=== PATIENT | female | born 1975 | race Two or more races ===

== ENCOUNTER 2025-03-24 05:58 | Emergency (ER) | payer OTHER, SELFPAY ==
[2025-03-24 05:59] VITALS: BMI 28.8
[2025-03-24 06:41] VITALS: BP 147/94; PULSE 79; RESP 18; TEMP 37.1; O2SAT 97
--- NOTE | 2025-03-24 06:52 | PD.EDRME ---
Rapid Medical Screening Exam RME Arrival date/time: 03/24/25 05:58 49-year-old female presents to the emergency room today for complaint of right flank pain Chief Complaint: Abdominal Pain Time Seen by Provider: 03/24/25 06:14 Vital signs: Vital Signs Temperature 98.8 F 03/24/25 06:41 Pulse Rate 79 03/24/25 06:41 Respiratory Rate 18 03/24/25 06:41 Blood Pressure 147/94 H 03/24/25 06:41 Pulse Oximetry (%) 97 03/24/25 06:41 Oxygen Delivery Method Room Air 03/24/25 06:41
[2025-03-24] MEDS: KETOROLAC INJ 30 MG/ML VIAL IM (07:04)
[2025-03-24 07:24] LABS: Collection Type, Urine Clean Catch
[2025-03-24 07:36] LABS: Bilirubin,Urine Negative (Negative); Blood,Urine Negative (Negative); Clarity,Urine Clear (Clear/Hazy); Color,Urine Colorless (Lt Yel-Yel); Culture Indicated,Urine Not Indicated; Glucose, Urine 4+ (Negative); Ketones,Urine Negative (Negative); Leukocyte Esterase,Urine Negative (Negative); Nitrite,Urine Negative (Negative); PH,Urine 6.5 (5.0-7.0); Protein,Urine Negative (Neg - Trace); RBC,Urine 1 /hpf (0-3); Specific Gravity,Urine 1.004 (1.001-1.035); Squamous Epithelial Cell,Urine 1 /hpf (0-5); Urobilinogen,Urine Negative mg/dL (0.0-1.0); WBC,Urine 1 /hpf (0-5)
[2025-03-24 07:44] LABS: HCG Qualitative,Urine Negative
--- NOTE | 2025-03-24 09:53 | PC.NURSE ---
NO ANSWER X3 ELOPED
== END 2025-03-24 09:54 | disposition left against medical advice (07) ==
LOC: SERX 10:26
PROVIDERS: Nurse Practitioner Primary Care; Emergency Provider Emergency Medicine
DX: R10.9 Unspecified abdominal pain (principal); Z53.29 Procedure and treatment not carried out because of patient's decision for other reasons
CPT/HCPCS: 80053; 81001; 81025; 83690; 85025; 96372; 99283; J1885

== ENCOUNTER 2025-07-18 09:55 | Emergency (ER) | payer BC, OTHER, SELFPAY ==
[2025-07-18 11:41] VITALS: BP 150/92; PULSE 68; RESP 18; TEMP 36.7; O2SAT 98
--- NOTE | 2025-07-18 11:45 | EDNOTE_ITS ---
ED Skin Abcess FB-RME/HPI General Chief complaint: Skin/Abscess/Foreign Body Stated complaint: Pt thinks she may have shingles Time Seen by Provider: 07/18/25 10:17 Arrival date/time: 07/18/25 09:55 This is a 49-year-old female that comes into the emergency room with complaints of pain to her right flank area that kind of wraps around to her right lower quadrant area. Patient states the pain is the same when she was diagnosed with shingles a couple months ago. Patient was treated with acyclovir and valacyc lovir. Patient was also given gabapentin for pain. Patient does not want to take gabapentin for pain because she states it makes her too sleepy. Patient denies any urinary symptoms. She denies any fall or any trauma. Patient describes it as a burning type pain and sometimes comes in spurts and randomly sometimes feel like a shocking pain every once in a while. Patient denies any numbness tingling. Related Data Previous Rx's ?Medication ?Instructions ?Recorded ibuprofen 600 mg tablet 600 mg PO TID pain #30 tabs 06/20/18 ibuprofen 600 mg tablet 600 mg PO Q8H PRN fever or p ain 12/25/23 #20 tabs Allergies Allergy/AdvReac Type Severity Reaction Status Date / Time No Known Allergies Allergy Verified 07/18/25 09:58 Review of Systems Review of Systems Systems Reviewed: All systems reviewed, normal except as documented Past Medical History Past Medical History NEUROLOGIC: Negative Neurological Disorders or Seizures CARDIAC: Negative Cardiac Disorders or Congestive Heart Failure RESPIRATORY: Positive Bronchitis and Pneumonia; Negative Chronic Obstructive Pulmonary Disease (COPD) GASTROINTESTINAL: Negative Gastrointestinal Disorders GENITOURINARY: Negative Genitourinary Disorders or Renal Disease REPRODUCTIVE: Positive Breast Cancer and Previous Pregnancies () MUSCULOSKELETAL: Negative Musculoskeletal Disorders ENDOCRINE: Negative Endocrine Disorders, Diabetes Mellitus Type 1 or Diabetes Mellitus Type 2 HEMATOLOGIC: Negative Blood Disorders OTHER HISTORY: Positive Radiation Therapy (right breast ca) and Breast Cancer; Negative Hospitalization, Autoimmune Disease, Shingles or Falls Family History FAMILY HISTORY: Positive Family Cardiac Disorders (father(mi)), Family Gastrointestinal Problems (sister(gallbladder)) and Family Surgery (sister(cholecystectomy)); Negative Family Psychiatric Problems, Family Respiratory Disorders, Family Cancer or Family Anesthesia Reaction Surgical History SURGICAL: Positive Lumpectomy (right breast, 06/2017) Social History SMOKING STATUS: Never smoker ED Exam Narrative Physical exam: VITAL SIGNS: Reviewed. GENERAL APPEARANCE: Alert and interactive, follows commands, no acute distress HEAD AND FACE: Non-traumatic. ENT: PERRL, conjuctiva pink and clear, eyelid no trauma, Mucous membrane moist. NECK: Supple, nontender, no nuchal rigidity. CHEST: No tenderness, no crepitus, no paradoxical movement, no retractions. LUNGS: breathing even and unlabored HEART: Regular rate, cap refill less than 2 seconds ABDOMEN: Soft, nondistended, no pain to light palpation NEUROLOGICAL: Gross motor function intact sensory function intact, Appropriate for age. MUSCULOSKELETAL: low back nontender, full range of motion. no midline tenderness, no meningismus, no step offs EXTREMITIES: No redness no swelling no skin breakdown on bilateral foot and leg. Distal neurovascular status intact bilateral foot SKIN: Color pink, dry Course Quality Measures none Orders Category Date Time Status HCG Qualitative,Urine Stat Lab 07/18/25 12:09 Completed Urinalysis, C/S if Indicated Stat Lab 07/18/25 12:09 Completed Acetaminophen Tab [Tylenol ES Tab] Med 07/18/25 11:44 Discontinued 1,000 mg PO X1 ONE Ibuprofen Tab [Motrin Tab] Med 07/18/25 11:44 Discontinued 800 mg PO X1 ONE Vital Signs Vital signs: Vital Signs Temperature 98.0 F 07/18/25 11:41 Pulse Rate 68 07/18/25 11:41 Respiratory Rate 18 07/18/25 11:41 Blood Pressure 150/92 H 07/18/25 11:41 Pulse Oximetry (%) 98 07/18/25 11:41 Oxygen Delivery Method Room Air 07/18/25 11:41 Skin / Abscess / Foreign Body MDM Narrative MDM Narrative:: Urinalysis shows leukocyte esterase positive no white blood cells no RBCs no nitrates. Patient not complaining of urinary symptoms. Patient states the pain is very similar to where she had the shingles pain previously. No lesions appreciated. Possible post herpetic neuralgia. Patient already does have gabapentin at home but states she does not want to take it because it makes her sleepy. I did suggest her taking this medication at night if she is too sleepy during the day to take it. went to go get patient in the waiting room for recheck and to discharge patient. Patient was in no answer. Patient data External records reviewed:: [facility] previous records Clinical information provided by:: patient Social determinants that could affect healthcare access:: none Patient has the following chronic illnesses:: None How is presenting disease/condition affected by chronic disease/condition?: no chronic disease Evaluation data The following diagnostics were reviewed and interpreted by me:: other (specify) (None) Lab and/or radiology exams considered but not ordered:: See note Interpretation Summary: See note Medications / Prescriptions Medications or Prescriptions considered but not ordered:: None Medication administrations:: Medication Administration History Discontinued Medications Acetaminophen (Acetaminophen 500 Mg Tablet) 1,000 mg PO X1 ONE Stop: 07/18/25 11:45 Last Admin: 07/18/25 12:34 Dose: 1,000 mg Documented By: Ibuprofen (Ibuprofen Tab 400 Mg Tablet) 800 mg PO X1 ONE Stop: 07/18/25 11:45 Last Admin: 07/18/25 12:35 Dose: 800 mg Documented By: See MAR Consultations Consultation(s) initiated? (list below): No Diagnosis Skin/Abscess Differential Diagnosis: abscess of skin or subcutaneous tissue, viral exanthem, urticaria, herpes zoster, allergic reaction to drug, cellulitis and contact dermatitis Most likely diagnosis given after review of the tests above:: See note Admission Indicated Admission indicated?: not indicated Admission Request Was there a request for admission?: No Disposition Plan Disposition Plan: other (specify) (pt eloped ) Discharge Plan Plan Patient Disposition: Elopement Patient condition on transfer: Stable Prescriptions/Referrals Prescriptions/Med Rec: No Action ibuprofen 600 mg tablet 600 mg PO TID Qty: 30 0RF ibuprofen 600 mg tablet 600 mg PO Q8H PRN (Reason: fever or pain) Qty: 20 0RF Referrals: Rubi Lares PA-C ([facility]) [Primary Care Provider] - In 1 week Problem List Clinical Impression: Neuralgia, postherpetic, Pain Patient/Caregiver Discharge Instructions Discharge Activity: activity as tolerated Education Materials: Complementary Care for Pain Additional Instructions: Follow up with primary provider in 1-2 days. Come back to ED if symptoms change or worsen Print Language: Martiniquais Stand Alone Forms: Chanelle Award Info., Patient Portal Info Letter PA/JIM Supervising Physician PA/JIM Supervising Physician: ni
[2025-07-18] MEDS: ACETAMINOPHEN 500 MG TABLET 1000 MG PO (12:34)
[2025-07-18] MEDS: IBUPROFEN TAB 400 MG TABLET 800 MG PO (12:35)
[2025-07-18 12:36] LABS: Collection Type, Urine Voided
[2025-07-18 13:14] LABS: Bilirubin,Urine Negative (Negative); Blood,Urine Negative (Negative); Clarity,Urine Clear (Clear/Hazy); Color,Urine Lt-Yellow (Lt Yel-Yel); Culture Indicated,Urine Not Indicated; Glucose, Urine 4+ (Negative); Ketones,Urine Negative (Negative); Leukocyte Esterase,Urine Positive (Negative); Nitrite,Urine Negative (Negative); PH,Urine 6.0 (5.0-7.0); Protein,Urine Negative (Neg - Trace); RBC,Urine 3 /hpf (0-3); Squamous Epithelial Cell,Urine 1 /hpf (0-5); Urobilinogen,Urine Negative mg/dL (0.0-1.0); WBC,Urine 1 /hpf (0-5)
[2025-07-18 13:18] LABS: Specific Gravity,Urine 1.020 (1.001-1.035)
[2025-07-18 13:19] LABS: HCG Qualitative,Urine Negative
--- NOTE | 2025-07-18 15:21 | PC.NURSE ---
CALLED FOR PT FROM [facility]/OUTSIDE, NO [email or web address]@ [phone]
--- NOTE | 2025-07-18 18:03 | PC.NURSE ---
NA X3 1520, 1601, 1610, left before receiving discharge paperwork.
== END 2025-07-18 16:10 | disposition left against medical advice (07) ==
PROVIDERS: Emergency Provider Nurse Practitioner Family; PCP Nurse Practitioner Family
DX: B02.29 Other postherpetic nervous system involvement (principal); Z53.29 Procedure and treatment not carried out because of patient's decision for other reasons
CPT/HCPCS: 81001; 81025; 99282; A9270